=== PATIENT | female | born 1970 | race Caucasian/White ===

== ENCOUNTER → 2018-06-18 15:00 | Outpatient (CLI) | payer BC, SELFPAY ==
--- NOTE | 2018-06-18 15:05 | XR_ITS ---
XR foot wt bearing LT 3V HISTORY: ITS.REASON: pain ORDERING PHYSICIAN: Luisa Driscoll DPM PATIENT AGE: 48 years COMPARISON: None FINDINGS: No fracture or dislocation. No lytic or blastic change. There is normal mineralization.. The joint spaces are well-preserved. No significant degenerative/arthritic changes. No erosive changes evident. There are mild hypertrophic changes of the navicular with some mild sclerosis of the articular surface of the navicular proximally.. The talonavicular joint space is well-preserved. IMPRESSION: 1. No acute finding. 2. Minimal hypertrophic change of the navicular dorsally
--- NOTE | 2018-06-18 15:05 | XR_ITS ---
XR foot wt bearing RT 3V HISTORY: ITS.REASON: pain ORDERING PHYSICIAN: Luisa Driscoll DPM PATIENT AGE: 48 years COMPARISON: None FINDINGS: No fracture or dislocation. No lytic or blastic change. There is normal mineralization.. The joint spaces are well-preserved. No significant degenerative/arthritic changes. No erosive changes evident. There are mild nonspecific hypertrophic changes along the superior aspect of the navicular. The talonavicular joint spaces well-preserved. Small calcaneal spurs noted IMPRESSION: No acute finding. Minimal hypertrophic changes of the navicular
== END ==
PROVIDERS: PCP Family Medicine; Visit Provider Podiatrist
DX: M79.672 Pain in left foot (principal); M79.671 Pain in right foot
CPT/HCPCS: 73630

== ENCOUNTER → 2018-10-15 16:39 | Outpatient (CLI) | payer BC, SELFPAY ==
--- NOTE | 2018-10-15 16:44 | MM_ITS ---
MM Dig screening mamm BI w/CAD CAD Screening COMPARISON: Digital mammograms with CAD 12/12/2016 INDICATION: There is no personal or family history of breast cancer TECHNIQUE: Standard CC and MLO images were obtained. R2 CAD reviewed. FINDINGS: Scattered fibroglandular densities are seen throughout both breasts. There is a possible asymmetric density and/or architectural distortion in the retroareolar region left breast. This likely is a summation shadow but recommend patient return for spot compression views, ultrasound may be necessary as well. There are no suspicious microcalcifications. IMPRESSION: Fibrofatty parenchyma with possible developing asymmetric glandular density and/or architectural distortion BI-RADS Category: 0 Need Additional Imaging Evaluation RECOMMENDED FOLLOW-UP: IMM - IMMEDIATE FOLLOW-UP RECOMMENDED (A letter has been sent to the patient regarding results of the study.)
== END ==
PROVIDERS: PCP Family Medicine; Visit Provider Nurse Practitioner
DX: Z12.31 Encounter for screening mammogram for malignant neoplasm of breast (principal)
CPT/HCPCS: 77067

== ENCOUNTER → 2018-11-02 13:18 | Outpatient (CLI) | payer BC, SELFPAY ==
--- NOTE | 2018-11-02 13:25 | US_ITS ---
US breast LT complete COMPARISON: Diagnostic left mammogram 11/02/2018 HISTORY: Evaluation of possible asymmetric density left breast TECHNIQUE: Targeted ultrasound FINDINGS: There are 2 tiny 2 to 3 mm hypoechoic lesions one o'clock position mid breast to small to characterize but likely representing microcysts. There is an additional hypoechoic lesion at the 3:00 position near the nipple measuring 0.4 x 0.3 x 0.4 cm showing a few internal echoes and this could be a tiny fibroadenoma or a complex cyst. There are 2 normal-appearing nodes imaged in the axilla. There is no suspicious lesion seen. IMPRESSION: Tiny hypoechoic lesions as described likely microcysts or possibly tiny complex cysts with no suspicious lesion seen in recommend the patient continue with yearly screening mammography
--- NOTE | 2018-11-02 13:25 | MM_ITS ---
MM Dig mamm DX unilat LT CAD COMPARISON: Digital mammograms with CAD 10/15/2018 INDICATION: Evaluation of possible developing asymmetric density and/or architectural distortion left breast TECHNIQUE: Spot compression MLO and CC views and 90 degrees lateral view FINDINGS: The additional views decreased concern for a true lesion at this location. There is a small area of likely asymmetric fibroglandular tissue with no suspicious characteristics noted. IMPRESSION: Negative problem-solving views, patient to continue with yearly screening mammography BI-RADS Category: 1 Negative RECOMMENDED FOLLOW-UP: 1YR - 1 YEAR FOLLOW-UP (A letter has been sent to the patient regarding results of the study.)
== END ==
PROVIDERS: PCP Family Medicine; Visit Provider Family Medicine
DX: R92.8 Other abnormal and inconclusive findings on diagnostic imaging of breast (principal)
CPT/HCPCS: 76641; 77065

== ENCOUNTER → 2020-09-14 10:03 | Outpatient (CLI) | payer BC, SELFPAY ==
--- NOTE | 2020-09-14 | CA_ITS ---
APPROVED REPORT Bilateral Lower Extremity Venous Study for DVT. Census Taker: ADITYA Indications s/p fall 10 days ago with a hematoma Vein Imaging CFV (L): compressive, spontaneous, phasic, augmentation SFJ (L): compressive, spontaneous, phasic, augmentation FEM (L): compressive, spontaneous, phasic, augmentation POP (L): compressive, spontaneous, phasic, augmentation DFV (L): compressive, spontaneous, phasic, augmentation PTV (L): compressive, spontaneous, phasic, augmentation GSV (L): compressive, spontaneous, phasic, augmentation SSV (L): compressive, spontaneous, phasic, augmentation Peroneals (L):compressive, spontaneous, phasic, augmentation GAS (L): compressive, spontaneous, phasic, augmentation Findings Color flow duplex demonstrates no evidence of DVT of the following left lower extremity Veins:Common Femoral Vein, Femoral Vein, Popliteal Vein, Posterior Tibial Veins, Peroneal Veins, Deep Femoral Vein. Negative for DVT. Conclusion Negative for DVT. Electronically signed by : Adrian Kern MD 09/14/2020 16:14:41
--- NOTE | 2020-09-14 10:29 | XR_ITS ---
PROCEDURE: XR ANKLE LT MIN 3V CLINICAL INDICATION: ACUTE LT ANKLE PAIN COMPARISON: No exams were available for comparison FINDINGS: No fracture or dislocation. No lytic or blastic change. There is normal mineralization. The joint spaces are well-preserved. No significant degenerative/arthritic changes. No erosive changes evident. Other findings:None. IMPRESSION: No acute findings. Dictated by: Adrian Kern MD 09/14/2020 12:41 Adrian Kern MD in [place] 09/14/2020 12:41
== END ==
PROVIDERS: PCP Nurse Practitioner; Visit Provider Nurse Practitioner
DX: M79.662 Pain in left lower leg (principal); M25.572 Pain in left ankle and joints of left foot
CPT/HCPCS: 73610; 93971

== ENCOUNTER → 2021-03-19 10:17 | Outpatient (CLI) | payer BC, SELFPAY ==
[2021-03-19 10:47] LABS: Coronavirus 19, PCR Not Detected (NotDetected); Influenza A, PCR Not Detected (NotDetected); Influenza B, PCR Not Detected (NotDetected)
[2021-03-19 11:04] LABS: Basophils % 0.3 % (0.1-2.0); Eosinophils % 0.1 % (0.1-12.0); Hematocrit 41.4 % (37.0-47.0); Hemoglobin 14.1 g/dL (12.2-16.2); Lymphocytes # 1.4 K/mm3 (0.7-4.5); Lymphocytes % 11.6 % (10-50); Mean Corpuscular HGB Conc 34.1 g/dL (31.8-35.4); Mean Corpuscular Hemoglobin 30.7 pg (27.0-31.2); Mean Corpuscular Volume 89.9 fl (81-99); Monocytes # 0.5 K/mm3 (0.1-1.0); Monocytes % 4.3 % (1.7-9.3); Neutrophils # 10.2 K/mm3 (1.8-7.8); Neutrophils % 83.7 % (37.0-80.0); Platelet Count 364 K/mm3 (142-424); Red Cell Distribution Width 13.1 % (11.5-17.5); White Blood Count 12.2 K/mm3 (4.8-10.8)
== END ==
PROVIDERS: PCP Nurse Practitioner; Visit Provider Nurse Practitioner
DX: Z20.822 Contact with and (suspected) exposure to COVID-19 (principal)
CPT/HCPCS: 36415; 85025; C9803; U0003; U0005

== ENCOUNTER → 2021-07-04 10:50 | Outpatient (CLI) | payer BC, SELFPAY ==
--- NOTE | 2021-07-04 10:52 | MM_ITS ---
PROCEDURE INFORMATION: Exam: MG Bilateral Screening 3D Mammography Exam date and time: 07/04/2021 10:52 AM Age: 51 years old Clinical indication: Encounter for screening mammogram for malignant neoplasm of breast; Additional info: Fibrocystic breast disease (fcbd) unspecified type TECHNIQUE: Imaging protocol: Bilateral Screening tomosynthesis and 2D mammography including computer-aided detection (CAD) when performed. COMPARISON: 1. MG DIG MAMM-DX UNI-LT 11/02/2018 2:25 PM 2. MG DIG MAMM-SCREEN ELIS 10/15/2018 4:47 PM 3. MG DMSB DIG MAMM-SCREEN ELIS W/CAD 12/12/2016 4:25 PM FINDINGS: MAMMOGRAPHY: Breast composition: There are scattered areas of fibroglandular density. Mass: Questionable oval 0.9 cm mass in the left upper inner quadrant, middle depth, best seen on CC projection. No suspicious mass in the right breast. Architectural distortion: No suspicious distortion. Calcifications: No suspicious calcifications. Asymmetric density: None. Skin thickening: None. Axillary adenopathy: None. IMPRESSION: 1. Recommend left breast spot compression CC/MLO views and ultrasound for further evaluation of a questionable mass in the left upper inner quadrant, best seen on CC projection. 2. No definite mammographic evidence of malignancy in the right breast. ASSESSMENT: BI-RADS Category 0: Incomplete- Need Additional Imaging Evaluation and/or Prior Mammograms for Comparison
== END ==
PROVIDERS: PCP Nurse Practitioner; Visit Provider Nurse Practitioner
DX: Z12.31 Encounter for screening mammogram for malignant neoplasm of breast (principal); G47.30 Sleep apnea, unspecified; I10 Essential (primary) hypertension
CPT/HCPCS: 77063; 77067; G0399

== ENCOUNTER → 2021-07-18 12:41 | Outpatient (CLI) | payer BC, SELFPAY ==
--- NOTE | 2021-07-18 12:46 | MM_ITS ---
PROCEDURE INFORMATION: Exam: US Left Breast, Complete MG Left Diagnostic Breast Tomosynthesis Exam date and time: 07/18/2021 1:39 PM Age: 51 years old Clinical indication: Patient recalled for further evaluation of a questionable left breast mass TECHNIQUE: Imaging protocol: Complete ultrasound of all four quadrants of the Left breast and the retroareolar regions, including ultrasound of the axilla when performed. Left Diagnostic tomosynthesis and 2D mammography including computer-aided detection (CAD) when performed. Unilateral or bilateral exam. COMPARISON: 1. MG MM DIG SCREENING MAMM BI W/CAD 07/04/2021 10:51 AM 2. MG DIG MAMM-DX UNI-LT 11/02/2018 2:25 PM 3. BREASTLT US breast LT complete 11/02/2018 1:56 PM 4. MG DIG MAMM-SCREEN ELIS 10/15/2018 4:47 PM FINDINGS: MAMMOGRAPHY: Digital diagnostic spot compression views of the left breast demonstrate normal overlapping fibroglandular structures without persistent mass or asymmetry identified. ULTRASOUND: Sonographic images of the left breast including the retroareolar region, all 4 quadrants and the axilla do not demonstrate any solid masses. Few scattered subcentimeter cysts are noted. No architectural distortion or acoustical shadowing. No skin thickening or axillary adenopathy. IMPRESSION: No mammographic or sonographic evidence of malignancy. Annual bilateral mammographic screening is recommended unless otherwise clinically indicated. ASSESSMENT: BI-RADS Category 2: Benign
== END ==
PROVIDERS: PCP Nurse Practitioner; Visit Provider Nurse Practitioner
DX: R92.8 Other abnormal and inconclusive findings on diagnostic imaging of breast (principal)
CPT/HCPCS: 76641; 77061; 77065; G0279

== ENCOUNTER 2022-01-05 13:44 | Emergency (ER) | payer BC, SELFPAY ==
--- NOTE | 2022-01-05 13:47 | XR_ITS ---
PROCEDURE INFORMATION: Exam: XR Right Hand Exam date and time: 01/05/2022 1:43 PM Age: 52 years old Clinical indication: Injury or trauma; Blunt trauma (contusions or hematomas); Injury details: Son ran into her right hand yesterday jamming her right hand. ; Additional info: Son ran into it TECHNIQUE: Imaging protocol: Radiologic exam of the Right hand. Views: 3 or more views. COMPARISON: No relevant prior studies available. FINDINGS: Bones/joints: Normal. Soft tissues: Normal. IMPRESSION: No acute findings.
[2022-01-05 13:50] VITALS: BP 153/89; PULSE 78; RESP 20; TEMP 36.7; O2SAT 97; BMI 36.8
--- NOTE | 2022-01-05 14:07 | EXP.UTC ---
Discharge Plan Disposition Patient Disposition: Home, Self-Care Condition: Good Prescriptions Prescriptions: New ibuprofen [ibuprofen] 600 mg tablet 600 mg PO Q6HP PRN (Reason: Mild Pain) Qty: 30 0RF No Action diclofenac sodium [Voltaren] 1 % gel 4 g topical QID Qty: 30 2RF Rx Instructions: apply to single knee, ankle, foot; gently massage into area; for foot includes sole/toes/top of foot cetirizine [Zyrtec] 10 mg tablet 10 mg PO DAILY duloxetine 20 mg capsule,delayed release(DR/EC) 20 mg PO BID Qty: 180 1RF estradiol 1 mg tablet 1 mg PO DAILY Qty: 90 1RF hydrochlorothiazide 25 mg tablet 25 mg PO DAILY Qty: 90 1RF metoprolol succinate 25 mg tablet extended release 24 hr 25 mg PO DAILY Qty: 90 1RF Referrals Follow up/Referrals: iGna Lopez APRN [Primary Care Provider] - See instructions Kayode Ring MD [Staff Physician] - See instructions Activity Restrictions/Add. Instructions Additional Instructions/Restrictions: Rest the extremity, apply ice for 15 minutes as tolerated three or four times per day, Wear the cierra wrap for compression, Elevate the extremity as tolerated while you are resting. Take ibuprofen for pain. I sent in a prescription to your pharmacy. Follow up with Dr. Ring (orthopedics). Sometimes there can be injuries that don't show up well on the first set of x-rays. So, you should follow up. I put in a referral but you need to call his office and schedule an appointment. Follow up with your regular doctor. GO TO THE ER FOR ANY WORSENING SYMPTOMS Clinical Impressions Clinical Impression: Other sprain of right middle finger, initial encounter Stand Alone Forms Stand Alone Forms: Work/School Release Discharge ED Provider: Nick Rodarte [facility] General Stated complaint: ao 01/04, right hand pain Mode of Arrival: Ambulatory Source of Information: Patient Limitations: No Limitations Time Seen by Provider: 01/05/22 14:05 Description of Symptoms (Recalled from Triage Doc. by RN): PATIENT C/O INJURY TO RIGHT HAND AFTER HER SON RAN INTO IT AT A BIRTHDAY [employer] LAST NIGHT HEENT Symptoms (Recalled from RN notes): No Resp Symptoms (Recalled from RN notes): No Skin Symptoms (Recalled from RN notes): No MS Symptoms (Recalled from RN notes): Yes Functional Status (Recalled from RN notes): WNL History of Present Illness Provider Complaint: She was at a birthday republican last night when her son ran into her outstretched right hand and bent her middle finger back on accident. Related Data Home Medications Medication Instructions Recorded Confirmed cetirizine 10 mg tablet (Zyrtec) 10 mg PO DAILY 08/23/18 07/24/21 Previous Rx's Medication Instructions Recorded diclofenac sodium 1 % topical gel 4 g topical QID pain #30 grams 06/28/18 (Voltaren) duloxetine 20 mg capsule,delayed 20 mg PO BID #180 caps 12/24/21 release estradiol 1 mg tablet 1 mg PO DAILY #90 tabs 12/24/21 hydrochlorothiazide 25 mg tablet 25 mg PO DAILY #90 tabs 12/24/21 metoprolol succinate 25 mg 25 mg PO DAILY #90 tabs 12/24/21 tablet,extended release 24 hr ibuprofen 600 mg tablet 600 mg PO Q6HP PRN Mild Pain #30 01/05/22 tabs Allergies Allergy/AdvReac Type Severity Reaction Status Date / Time No Known Allergies Allergy Verified 07/24/21 14:17 Worker's Comp Is this a Worker's Comp case?: No PFSH PFSH Medical History Hypertension Surgical History History of hysterectomy Social History Smoking Status: Former smoker alcohol intake: current substance use type: denies use current occupational status: employed Travel in the last 8 weeks: None household members: family housing: house ROS Obtained: Yes All systems reviewed & no additional complaints except as documented Constitutional Co
[2022-01-05 14:39] VITALS: BP 153/89; PULSE 78; RESP 20; TEMP 36.7; O2SAT 97
== END 2022-01-05 15:17 | disposition home or self-care (01) ==
PROVIDERS: Emergency Provider Nurse Practitioner Family; PCP Nurse Practitioner
DX: S63.612A Unspecified sprain of right middle finger, initial encounter (principal); W50.0XXA Accidental hit or strike by another person, initial encounter
CPT/HCPCS: 73130; 99212; G0463

== ENCOUNTER → 2022-03-12 10:30 | Outpatient (CLI) | payer BC, SELFPAY ==
[2022-03-12 18:44] LABS: Adenovirus,PCR Not Detected (NotDetected); Bordetella Pertussis Not Detected (NotDetected); Chlamydophila Pneumoniae, PCR Not Detected (NotDetected); Coronavirus 19, PCR Not Detected (NotDetected); Coronavirus 229E Not Detected (NotDetected); Coronavirus NL63 Not Detected (NotDetected); Coronavirus OC43 Not Detected (NotDetected); Coronovirus HKU1,PCR Not Detected (NotDetected); Human Metapneumovirus Not Detected (NotDetected); Influenza A, PCR Not Detected (NotDetected); Influenza AH1, 2009 Not Detected (NotDetected); Influenza AH1, PCR Not Detected (NotDetected); Influenza AH3,PCR Not Detected (NotDetected); Influenza B, PCR Not Detected (NotDetected); Mycoplasma Pneumoniae, PCR Not Detected (NotDetected); Parainfluenza 1, PCR Not Detected (NotDetected); Parainfluenza 2, PCR Not Detected (NotDetected); Parainfluenza 3, PCR Not Detected (NotDetected); Parainfluenza 4, PCR Not Detected (NotDetected); Respiratory Syncytial Virus Not Detected (NotDetected); Rhinovirus/Enterovirus Not Detected (NotDetected)
[2022-03-12 19:25] LABS: Basophils # 0.1 K/mm3 (0-0.2); Basophils % 1.5 % (0.1-2.0); Eosinophils # 0.1 K/mm3 (0.0-0.4); Eosinophils % 2.1 % (0.1-12.0); Hemoglobin 11.9 g/dL (12.2-16.2); Lymphocytes # 2.5 K/mm3 (0.7-4.5); Lymphocytes % 39.5 % (10-50); Mean Corpuscular HGB Conc 31.4 g/dL (31.8-35.4); Mean Corpuscular Hemoglobin 29.9 pg (27.0-31.2); Mean Corpuscular Volume 95.3 fl (81-99); Mean Platelet Volume 9.8 fl (7.4-10.4); Monocytes # 0.4 K/mm3 (0.1-1.0); Monocytes % 5.8 % (1.7-9.3); Neutrophils # 3.2 K/mm3 (1.8-7.8); Neutrophils % 51.2 % (37.0-80.0); Platelet Count 395 K/mm3 (142-424); Red Blood Count 3.99 M/mm3 (4.20-5.40); Red Cell Distribution Width 13.2 % (11.5-17.5); White Blood Count 6.3 K/mm3 (4.8-10.8)
[2022-03-12 19:31] LABS: Alanine Aminotransferase 23 U/L (12-78); Albumin Level 4.5 g/dl (3.5-5.0); Albumin/Globulin Ratio 1.7 (1.1-1.8); Alkaline Phosphatase 90 U/L (38-126); Aspartate Amino Transferase 30 U/L (14-36); Bilirubin,Total 0.4 mg/dl (0.2-1.3); Blood Urea Nitrogen 20 mg/dl (7-17); Calcium 9.6 mg/dl (8.4-10.2); Carbon Dioxide 31 mmol/L (22.0-30.0); Chloride 101 mmol/L (98-107); Chol/HDL Ratio 4.6 (1-3.5); Cholesterol 242 mg/dl (140-200); Estimated Glomerular Filt Rate 66 ml/min (>60); GFR (African American) 80 ML/MIN (>60); Globulin 2.7 g/dL (1.3-3.2); Glucose 94 mg/dl (74-100); HDL Cholesterol 53 mg/dl (40-60); Sodium 141 mmol/L (136-145); Total Protein,Serum 7.2 g/dl (6.3-8.2); Triglycerides 116 mg/dl (30-150); VLDL Cholesterol 23 mg/dL (0-40)
[2022-03-12 19:42] LABS: Direct LDL Cholesterol 155.27 mg/dL (100-129)
[2022-03-12 20:57] LABS: Anion Gap 13.1 mEq/L (5-15); Potassium 4.1 mmoL/L (3.5-5.1)
[2022-03-22 19:09] LABS: 1,25 Dihydroxy Vitamin D 114 pg/mL (.); 1,25-Dihydroxy, Vitamin D-2 <10 pg/mL (.); 1,25-Dihydroxy, Vitamin D-3 114 pg/mL (.)
== END ==
PROVIDERS: PCP Nurse Practitioner; Visit Provider Nurse Practitioner
DX: I10 Essential (primary) hypertension (principal); E78.5 Hyperlipidemia, unspecified; E55.9 Vitamin D deficiency, unspecified; J06.9 Acute upper respiratory infection, unspecified; J30.9 Allergic rhinitis, unspecified
CPT/HCPCS: 80053; 80061; 82652; 85025; 87581; 87632; 87798; C9803; U0003; U0005

== ENCOUNTER → 2022-04-04 18:31 | Outpatient (CLI) | payer BC, SELFPAY ==
--- NOTE | 2022-04-04 18:35 | XR_ITS ---
PROCEDURE INFORMATION: Exam: XR Lumbosacral Spine Exam date and time: 04/04/2022 6:37 PM Age: 52 years old Clinical indication: Pain; Sciatica; Patient HX: Numbness tingling down right leg; Additional info: Acute low back pain with right-sided sciatica TECHNIQUE: Imaging protocol: Radiologic exam of the lumbosacral spine. Views: 2 or 3 views. COMPARISON: [facility]SWO CT LUMBAR SPINE W/O CONTRAST 09/23/2016 1:17 AM FINDINGS: Bones/joints: Normal. No acute fracture. Normal alignment. Soft tissues: Unremarkable. IMPRESSION: No acute findings.
== END ==
PROVIDERS: PCP Nurse Practitioner; Visit Provider Nurse Practitioner
DX: M54.41 Lumbago with sciatica, right side (principal)
CPT/HCPCS: 72100

== ENCOUNTER → 2022-10-15 11:42 | Outpatient (CLI) | payer BC, SELFPAY ==
[2022-10-15 19:31] LABS: Coronavirus 19, PCR Not Detected (NotDetected); Influenza A, PCR Not Detected (NotDetected); Influenza B, PCR Not Detected (NotDetected)
[2022-10-15 19:46] LABS: Basophils # 0.1 K/mm3 (0-0.2); Basophils % 0.6 % (0.1-2.0); Eosinophils # 0.2 K/mm3 (0.0-0.4); Eosinophils % 1.6 % (0.1-12.0); Hematocrit 37.6 % (37.0-47.0); Hemoglobin 12.2 g/dL (12.2-16.2); Lymphocytes # 2.7 K/mm3 (0.7-4.5); Lymphocytes % 21.3 % (10-50); Mean Corpuscular HGB Conc 32.4 g/dL (31.8-35.4); Mean Corpuscular Hemoglobin 28.2 pg (27.0-31.2); Mean Corpuscular Volume 87.2 fl (81-99); Mean Platelet Volume 10.4 fl (7.4-10.4); Monocytes # 0.8 K/mm3 (0.1-1.0); Monocytes % 6.3 % (1.7-9.3); Neutrophils # 8.7 K/mm3 (1.8-7.8); Neutrophils % 70.2 % (37.0-80.0); Platelet Count 341 K/mm3 (142-424); Red Blood Count 4.31 M/mm3 (4.20-5.40); Red Cell Distribution Width 15.4 % (11.5-17.5); White Blood Count 12.4 K/mm3 (4.8-10.8)
== END ==
PROVIDERS: PCP Nurse Practitioner; Visit Provider Nurse Practitioner
DX: J06.9 Acute upper respiratory infection, unspecified (principal); J02.9 Acute pharyngitis, unspecified
CPT/HCPCS: 85025; 87635; 87636; C9803; U0003; U0005

== ENCOUNTER → 2022-11-13 14:56 | Outpatient (POV) | payer BC, SELFPAY | PROVIDERS: Visit Provider Specialist/Technologist | DX: Z00.00 Encounter for general adult medical examination without abnormal findings (principal) ==

== ENCOUNTER → 2023-04-06 23:59 | Outpatient (CLI) | payer BC, SELFPAY ==
[2023-04-06 18:50] LABS: Influenza A, PCR Not Detected (NotDetected); Influenza B, PCR Not Detected (NotDetected)
[2023-04-06 19:33] LABS: Basophils # 0.1 K/mm3 (0-0.2); Basophils % 0.8 % (0.1-2.0); Eosinophils % 0.2 % (0.1-12.0); Hematocrit 35.4 % (37.0-47.0); Hemoglobin 12.2 g/dL (12.2-16.2); Lymphocytes # 1.2 K/mm3 (0.7-4.5); Lymphocytes % 17.1 % (10-50); Mean Corpuscular HGB Conc 34.6 g/dL (31.8-35.4); Mean Corpuscular Hemoglobin 29.9 pg (27.0-31.2); Mean Corpuscular Volume 86.5 fl (81-99); Mean Platelet Volume 9.5 fl (7.4-10.4); Monocytes # 0.7 K/mm3 (0.1-1.0); Monocytes % 9.6 % (1.7-9.3); Neutrophils # 5.1 K/mm3 (1.8-7.8); Neutrophils % 72.4 % (37.0-80.0); Platelet Count 279 K/mm3 (142-424); Red Blood Count 4.09 M/mm3 (4.20-5.40); Red Cell Distribution Width 14.7 % (11.5-17.5); White Blood Count 7.1 K/mm3 (4.8-10.8)
[2023-04-06 20:02] LABS: Coronavirus 19, PCR Detected (NotDetected)
== END ==
PROVIDERS: PCP Family Medicine; Visit Provider Nurse Practitioner
DX: J06.9 Acute upper respiratory infection, unspecified (principal); U07.1 COVID-19
CPT/HCPCS: 85025; 87636

== ENCOUNTER → 2023-04-21 08:31 | Outpatient (CLI) | payer BC, SELFPAY ==
--- NOTE | 2023-04-21 08:52 | MR_ITS ---
FINAL REPORT CLINICAL HISTORY: right ear dysfunction COMPARISON: None FINDINGS: Multiplanar MR imaging of the brain was performed without and with contrast. The internal auditory canals are unremarkable in appearance without evidence of focal mass or enhancement. There is no evidence of intracranial hemorrhage or mass. No abnormal extra-axial fluid collection is seen. The ventricular size is within normal limits. There is no evidence of shift of the midline structures. The posterior fossa and brainstem have an unremarkable appearance. No area of abnormal restricted diffusion is identified. No abnormal contrast enhancement is seen. Normal major vessel vascular flow voids are noted. IMPRESSION: No acute intracranial abnormality identified. Reviewed, Interpreted and Dictated by Francisco Uribe MD Transcribed by Dianelys Coburn Authenticated and [facility]
[2023-04-21 09:08] LABS: Blood Urea Nitrogen 21 mg/dl (7-17); Estimated Glomerular Filt Rate 52 ml/min (>60); GFR (African American) 63 ML/MIN (>60)
== END ==
PROVIDERS: PCP Family Medicine; Visit Provider Family Medicine
DX: H69.91 Unspecified Eustachian tube disorder, right ear (principal)
CPT/HCPCS: 36415; 70553; 82565; 84520; A9576

== ENCOUNTER 2024-03-14 10:20 | Outpatient (CLI) | payer BC, SELFPAY ==
[2024-03-14 18:51] LABS: Basophils # 0.1 K/mm3 (0-0.2); Basophils % 0.8 % (0.1-2.0); Eosinophils # 0.1 K/mm3 (0.0-0.4); Eosinophils % 1.9 % (0.1-12.0); Hematocrit 39.4 % (37.0-47.0); Hemoglobin 12.8 g/dL (12.2-16.2); Lymphocytes # 2.1 K/mm3 (0.7-4.5); Lymphocytes % 34.8 % (10-50); Mean Corpuscular HGB Conc 32.4 g/dL (31.8-35.4); Mean Corpuscular Hemoglobin 29.9 pg (27.0-31.2); Mean Corpuscular Volume 92.2 fl (81-99); Mean Platelet Volume 8.7 fl (7.4-10.4); Monocytes # 0.4 K/mm3 (0.1-1.0); Monocytes % 6.5 % (1.7-9.3); Neutrophils # 3.4 K/mm3 (1.8-7.8); Neutrophils % 56.1 % (37.0-80.0); Platelet Count 319 K/mm3 (142-424); Red Blood Count 4.27 M/mm3 (4.20-5.40); Red Cell Distribution Width 13.9 % (11.5-17.5)
[2024-03-14 18:55] LABS: Albumin Level 4.1 g/dl (3.5-5.0); Chloride 105 mmol/L (98-107)
[2024-03-14 18:56] LABS: Potassium 3.7 mmoL/L (3.5-5.1); Sodium 140 mmol/L (136-145)
[2024-03-14 18:58] LABS: Alanine Aminotransferase 20 U/L (12-78); Albumin/Globulin Ratio 1.7 (1.1-1.8); Alkaline Phosphatase 54 U/L (38-126); Anion Gap 10.7 mEq/L (5-15); Aspartate Amino Transferase 28 U/L (14-36); Bilirubin,Total 0.4 mg/dl (0.2-1.3); Blood Urea Nitrogen 19 mg/dl (7-17); Carbon Dioxide 28 mmol/L (22.0-30.0); Estimated Glomerular Filt Rate 75 ml/min (>60); GFR (African American) 91 ML/MIN (>60); Globulin 2.4 g/dL (1.3-3.2); Total Protein,Serum 6.5 g/dl (6.3-8.2)
[2024-03-14 18:59] LABS: Calcium 9.2 mg/dl (8.4-10.2); Chol/HDL Ratio 4.1 (1-3.5); Cholesterol 215 mg/dl (140-200); Glucose 101 mg/dl (74-100); HDL Cholesterol 53 mg/dl (40-60); Triglycerides 111 mg/dl (30-150); VLDL Cholesterol 22 mg/dL (0-40)
[2024-03-14 19:30] LABS: Thyroid Stimulating Hormone 1.48 uIU/mL (0.465-4.68)
[2024-03-14 20:10] LABS: 25-OH Vitamin D, Total 30.7 ng/mL (30-100)
[2024-03-14 20:14] LABS: Microalbumin/Creatinine Ratio 4.1
[2024-03-14 20:42] LABS: Vitamin B12 532 pg/mL (239-931)
[2024-03-14 20:55] LABS: Creatinine,Urine Random 191 mg/dL (Not Estab.)
[2024-03-14 21:23] LABS: Hemoglobin A1C 5.3 % (4.0-6.0)
[2024-03-16 06:16] LABS: HCV Ab Non Reactive (Non Reactive)
== END 2024-03-14 23:59 | disposition home or self-care (01) ==
LOC: LAB.DROPOF 03-15 09:18
PROVIDERS: PCP Nurse Practitioner; Visit Provider Nurse Practitioner
DX: E78.5 Hyperlipidemia, unspecified (principal); I10 Essential (primary) hypertension; E53.8 Deficiency of other specified B group vitamins; E55.9 Vitamin D deficiency, unspecified; J30.9 Allergic rhinitis, unspecified; Z13.0 Encounter for screening for diseases of the blood and blood-forming organs and certain disorders involving the immune mechanism
CPT/HCPCS: 80050; 80053; 80061; 82043; 82306; 82570; 82607; 83036; 84443; 85025; 86803

== ENCOUNTER 2024-04-05 13:07 | Outpatient (CLI) | payer BC, SELFPAY ==
--- NOTE | 2024-04-05 13:11 | MM_ITS ---
PROCEDURE INFORMATION: Exam: MG Bilateral Screening 3D Mammography Exam date and time: 04/05/2024 1:29 PM Age: 54 years old Clinical indication: Screening examination TECHNIQUE: Imaging protocol: Bilateral Screening tomosynthesis and 2D mammography including computer-aided detection (CAD) when performed. COMPARISON: 1. MG MM DIG MAMM DX UNILAT LT CAD 07/18/2021 12:57 PM 2. MG MM DIG SCREENING MAMM BI W/CAD 07/04/2021 10:51 AM FINDINGS: MAMMOGRAPHY: Breast composition: There are scattered areas of fibroglandular density. Mass: None. Architectural distortion: None. Calcifications: No suspicious calcifications. Asymmetric density: None. Skin thickening: None. Axillary adenopathy: None. IMPRESSION: No mammographic evidence of malignancy. Annual screening is recommended unless otherwise clinically indicated. ASSESSMENT: BI-RADS Category 1: Negative.
== END 2024-04-05 23:59 | disposition home or self-care (01) ==
LOC: RAD 13:07
PROVIDERS: PCP Family Medicine; Visit Provider Nurse Practitioner
DX: Z12.31 Encounter for screening mammogram for malignant neoplasm of breast (principal)
CPT/HCPCS: 77063; 77067

== ENCOUNTER 2024-05-09 16:00 | Outpatient (CLI) | payer BC, SELFPAY ==
[2024-05-09 18:24] LABS: Coronavirus 19, PCR Not Detected (NotDetected); Human Rhinovirus Not Detected (NotDetected); Influenza A, PCR Not Detected (NotDetected); Influenza B, PCR Not Detected (NotDetected); Respiratory Syncytial Virus Not Detected (NotDetected)
[2024-05-09 18:57] LABS: Basophils # 0.1 K/mm3 (0-0.2); Basophils % 0.7 % (0.1-2.0); Eosinophils # 0.1 K/mm3 (0.0-0.4); Eosinophils % 0.8 % (0.1-12.0); Hematocrit 40.8 % (37.0-47.0); Hemoglobin 13.1 g/dL (12.2-16.2); Lymphocytes # 2.3 K/mm3 (0.7-4.5); Lymphocytes % 31.5 % (10-50); Mean Corpuscular HGB Conc 32.1 g/dL (31.8-35.4); Mean Corpuscular Hemoglobin 28.9 pg (27.0-31.2); Mean Corpuscular Volume 90.1 fl (81-99); Mean Platelet Volume 10.2 fl (7.4-10.4); Monocytes # 0.7 K/mm3 (0.1-1.0); Monocytes % 10.2 % (1.7-9.3); Neutrophils % 56.2 % (37.0-80.0); Platelet Count 360 K/mm3 (142-424); Red Blood Count 4.53 M/mm3 (4.20-5.40); Red Cell Distribution Width 13.7 % (11.5-17.5); White Blood Count 7.1 K/mm3 (4.8-10.8)
== END 2024-05-09 23:59 | disposition home or self-care (01) ==
LOC: LAB.DROPOF 05-11 08:44
PROVIDERS: PCP Nurse Practitioner; Visit Provider Nurse Practitioner
DX: J06.9 Acute upper respiratory infection, unspecified (principal)
CPT/HCPCS: 85025; 87631

== ENCOUNTER 2024-05-25 08:04 | Day surgery (SDC) | payer BC, SELFPAY ==
[2024-05-20 13:23] VITALS: BMI 35.9
[2024-05-25 08:36] VITALS: BP 128/79; PULSE 68; RESP 18; TEMP 36.5; O2SAT 96
[2024-05-25] MEDS: LACTATED RINGERS 1000ML 1,000 ML 50 ML IV (09:30)
--- NOTE | 2024-05-25 09:33 | P.PNANES_ITS ---
[facility] Disclaimer: The information contained in this section may have been updated after the patient was seen, as this information can be updated by other users. Medical History Family history of colon cancer in mother Right shoulder pain Anxiety with depression Eustachian tube dysfunction TMJ (dislocation of temporomandibular joint) Retracted ear drum Acute middle ear effusion Acute low back pain with right-sided sciatica Allergic rhinitis Vitamin D deficiency Vitamin B12 deficiency Hyperlipidemia Essential hypertension Hypertension Surgical History History of hysterectomy Family History (Updated 05/25/24 @ 08:28 by Luz Zamora RN) Other No significant family history Social History (Updated 05/25/24 @ 08:28 by Luz Zamora RN) Smoking Status: Former smoker alcohol intake: current alcohol intake frequency: holidays/special occasions only substance use type: denies use current occupational status: employed Travel in the last 8 weeks: None household members: family housing: house caffeine: Yes Have you lived/traveled outside US in past 30 days?: No Contact w/someone who lives/traveled outside US past 30 days?: No Exposure to someone with infectious disease in past 14 days?: No Do you have a fever (greater than 100.4 F or 38 C)?: No Have you tested positive for COVID-19: No Exposed to someone with COVID-19 in past 14 days?: No Do you have a sore throat?: No Do you have a cough?: No Do you have any weakness?: No Are you experiencing any nausea/vomitting?: No Do you have any diarrhea?: No Are you experiencing any unusual bleeding?: No Do you have any muscle aches/pain?: No Do you have any abdominal pain?: No Are you experiencing loss of taste or smell?: No [facility] Anesthesia Checklist Patient Identification Patient Identification: Arm Band Structural Data Admitted From: Home Planned Operative Procedure/s: Colonoscopy Consent for Planned Operative Procedure(s) Verified: Yes Verified Documents: Surgical Consent and History and Physical NPO Status Verified Time NPO: 00:00 Additional verifications Anesthesia Reactions: No Airway Assessment Mallampati Score:: Class II C-Spine Mobility Assessed: Yes TMJ Mobility Assessed: Yes Dentition: Good Dentition Neurological Assessment Level of Consciousness: Awake, Alert and Appropriate Anesthesia Plan Anesthesia Risk discussed: Yes Anesthesia Plan: Verified ASA Class: II Anesthesia Type: MAC
[2024-05-25 10:04] VITALS: O2SAT 100
--- NOTE | 2024-05-25 10:14 | EXP.HP ---
History of Present Illness *Admission Date: 05/25/24 *Reason for visit:: High risk screening/family history *History of present illness: Mrs. Sanchez is a 54-year-old female who is here for high risk screening colonoscopy secondary to family history. Her sister had strongly suspected colon cancer at the age of 48 (colon mass with metastasis) and her mother had colon cancer at the age of 64. The examination is deemed medically necessary for high risk screening colonoscopy. The patient has been seen, interviewed and examined prior to the procedure by both myself and the anesthesia provider. [facility] Disclaimer: The information contained in this section may have been updated after the patient was seen, as this information can be updated by other users. Medical History Family history of colon cancer in mother Right shoulder pain Anxiety with depression Eustachian tube dysfunction TMJ (dislocation of temporomandibular joint) Retracted ear drum Acute middle ear effusion Acute low back pain with right-sided sciatica Allergic rhinitis Vitamin D deficiency Vitamin B12 deficiency Hyperlipidemia Essential hypertension Hypertension Surgical History History of hysterectomy Family History (Updated 05/25/24 @ 08:28 by Luz Zamora RN) Other No significant family history Social History (Updated 05/25/24 @ 08:28 by Luz Zamora RN) Smoking Status: Former smoker alcohol intake: current alcohol intake frequency: holidays/special occasions only substance use type: denies use current occupational status: employed Travel in the last 8 weeks: None household members: family housing: house caffeine: Yes Have you lived/traveled outside US in past 30 days?: No Contact w/someone who lives/traveled outside US past 30 days?: No Exposure to someone with infectious disease in past 14 days?: No Do you have a fever (greater than 100.4 F or 38 C)?: No Have you tested positive for COVID-19: No Exposed to someone with COVID-19 in past 14 days?: No Do you have a sore throat?: No Do you have a cough?: No Do you have any weakness?: No Are you experiencing any nausea/vomitting?: No Do you have any diarrhea?: No Are you experiencing any unusual bleeding?: No Do you have any muscle aches/pain?: No Do you have any abdominal pain?: No Are you experiencing loss of taste or smell?: No Other Medical History Have you received the Pneumonia Vaccine: No Review of Systems Review of Systems Review of systems (narrative): Negative *Cardiovascular Comments: Negative *Gastrointestinal Comments: Negative *Genitourinary Comments: Negative *Musculoskeletal Comments: Negative *Neurologic Comments: Negative Meds Home Medications and Allergies Home Medications ?Medication ?Instructions ?Recorded ?Confirmed ?Type cetirizine 10 mg tablet (Zyrtec) 10 mg PO DAILY 08/23/18 05/25/24 History phentermine 37.5 mg capsule 37.5 mg PO DAILY 09/02/23 05/25/24 History duloxetine 20 mg capsule,delayed See Rx Instructions .Route 03/14/24 05/25/24 Rx release .COMPLEX #180 caps estradiol 1 mg tablet 1 mg PO DAILY #90 tabs 03/14/24 05/25/24 Rx fluticasone propionate 50 See Rx Instructions .Route 03/14/24 05/25/24 Rx mcg/actuation nasal .COMPLEX #48 grams spray,suspension hydrochlorothiazide 25 mg tablet See Rx Instructions .Route 03/14/24 05/25/24 Rx .COMPLEX #90 tabs lisinopril 5 mg tablet 5 mg PO DAILY #90 tabs 03/14/24 05/25/24 Rx metoprolol succinate 50 mg 50 mg PO DAILY #90 tabs 03/14/24 05/25/24 Rx tablet,extended release 24 hr albuterol sulfate 90 mcg/actuation 2 puff inhalation Q4-6H PRN 05/09/24 05/25/24 Rx aerosol inhaler shortness of breath or wheezing #8.5 grams dextromethorphan-guaifenesin ER 60 1 tab PO Q12H #60 tabs 05/09/24 05/25/24 Rx mg-1,200 mg tab,extend release,12hr New Prescriptions to Start Prescriptions: Allergies Allergy/AdvReac Type Severity Reaction Status Date / Time No Known Allergies Allergy Verified 05/25/24 08:29 Exam Data for Last 24 hours Vital signs and Labs for Last 24 Hours: Temp Pulse Resp BP Pulse Ox O2 Del Method O2 Flow Rate 97.7 F 68 18 128/79 96 Nasal Cannula 5 05/25/24 08:36 05/25/24 08:36 05/25/24 08:36 05/25/24 08:36 05/25/24 08:36 05/25/24 10:04 05/25/24 10:04 *Routine HEENT Exam Head: Present normocephalic Eye: Present EOMI and PERRL ENT: Present mucous membranes moist *Routine Neck Exam Neck: Present supple *Routine Respiratory Exam Respiratory: Present CTA bilaterally *Routine Cardiovascular Exam Cardiovascular: Present RRR *Routine Abdominal Exam Abdominal: Present soft and normoactive bowel sounds; Absent tenderness *Routine Rectal Exam Rectal:: deferred *Routine Genitalia Exam Genitalia:: deferred *Routine Extremities Exam Extremities: Absent cyanosis, clubbing or edema *Routine Skin Exam Skin: Present warm; Absent rash *Routine Neurological Exam Neurological: Present alert and oriented X3 Assessment and Plan *Assessment and plan (1) Family history of colon cancer: Status: Acute Category: Medical Code(s): Z80.0 - Family history of malignant neoplasm of digestive organs (2) Personal history of colon polyps, unspecified: Status: Acute Category: Medical Code(s): Z86.0100 - Personal history of colon polyps, unspecified Plan A/P: 1. High risk screening colonoscopy secondary to family history is the preprocedural diagnosis. The patient did have a colonoscopy 7 years ago and had 3 polyps removed (unspecified) the patient will be anesthetized/sedated using MAC sedation. The patient has been seen and examined. Cardiac and lung assessment prior to the examination is stable. Proceed with planned screening colonoscopy
--- NOTE | 2024-05-25 10:16 | P.PCN_ITS ---
[facility] Procedure Note Date: 05/25/24 Time: 10:35 Procedure Note:: Colonoscopy Procedure Report: Colonoscopy with cold snare polypectomy Endoscopist: Alexy Mota II, MD Referring physician: Micky Ortiz MD Date of Procedure: May 25, 2024 Equipment: Olympus 190 variable stiffness pediatric colonoscope Sedation: MAC sedation Indication: Mrs. Park is a 54-year-old female who is here for high risk screening colonoscopy secondary to family history. Her mother had colon cancer at the age of 64. Her sister had presumed colon cancer at 48 and presented with large colon mass and advanced disease (suspected colon cancer). The patient's last colonoscopy was 7 years ago (Alhaji Vieira MD) and she states that 3 polyps were removed at that time. She reports no abdominal pain, weight loss, change in her bowel habits or rectal bleeding. Procedure: Prior to the procedure, a history and physical exam was performed, and patient's medications and allergies were reviewed. The risks, benefits and alternatives of the sedation and procedure were discussed with the patient. All questions were answered and informed consent was obtained. The patient was brought to the procedure room. Patient identification and proposed procedure were verified by the physician and the nurse. The patient was placed in a left lateral decubitus position and the scope was passed under direct vision. Throughout the procedure, the patient's blood pressure, pulse, and oxygen saturations were monitored continuously. The colonoscopy was accomplished without difficulty. The patient tolerated the procedure well. Findings: On digital rectal examination there was normal rectal tone. There were no external hemorrhoids. The colonoscope was introduced through the anal canal to the rectum and advanced to the cecum. The ileocecal valve and appendiceal orifice were identified. The scope was advanced a short distance into the ileum which appeared grossly normal. The scope was then withdrawn into the colon. The cecum, ascending, transverse and descending colon were normal. There was a dimi nutive 3 to 4 mm hyperplastic appearing polyp in the distal sigmoid colon removed via cold snare polypectomy. The remaining sigmoid and rectum were grossly normal. There were no other mucosal abnormalities identified. Upon retroflexion within the rectum there were small grade 1 internal hemorrhoids.The preparation was excellent throughout with Morehouse Preparation Score of 9. The cecal time was 12 minutes. Impression: 1. Diminutive hyperplastic appearing 3 to 4 mm distal sigmoid polyp Plan: I will follow-up the polyp histology. Based upon her family history, I would recommend repeat surveillance colonoscopy again in 5 years.
[2024-05-25 10:39] VITALS: BP 118/64; PULSE 64; RESP 16; TEMP 36.3; O2SAT 100
[2024-05-25 10:49] VITALS: BP 115/64; PULSE 64; RESP 16; O2SAT 100
[2024-05-25 10:59] VITALS: BP 107/70; PULSE 63; RESP 16; O2SAT 99
[2024-05-25 11:09] VITALS: BP 130/77; PULSE 57; RESP 16; O2SAT 98
== END 2024-05-25 11:10 | disposition home or self-care (01) ==
PROVIDERS: PCP Family Medicine; Visit Provider Internal Medicine Gastroenterology
PROC: (CPT 45385; principal; 2024-05-25 09:30)
DX: K63.5 Polyp of colon (principal); K64.0 First degree hemorrhoids; Z80.0 Family history of malignant neoplasm of digestive organs; Z86.0100 Personal history of colon polyps, unspecified
CPT/HCPCS: 45385; J7120

== ENCOUNTER 2025-04-10 08:07 | Outpatient (CLI) | payer BC, SELFPAY ==
[2025-04-10 14:55] LABS: Hematocrit 38.8 % (37.0-47.0); Hemoglobin 12.7 g/dL (12.2-16.2); Immature Granulocytes % 0.3 %; Mean Corpuscular HGB Conc 32.7 g/dL (31.8-35.4); Mean Corpuscular Hemoglobin 30.0 pg (27.0-31.2); Mean Corpuscular Volume 91.5 fl (81-99); Nucleated Red Blood Cells % 0 %; Platelet Count 354 K/mm3 (142-424); Red Blood Count 4.24 M/mm3 (4.20-5.40); Red Cell Distribution Width-SD 44.4 fL; White Blood Count 6.6 K/mm3 (4.8-10.8)
[2025-04-10 15:30] LABS: Hemoglobin A1C 5.3 % (4.0-6.0)
[2025-04-10 15:38] LABS: Alanine Aminotransferase 20 U/L (12-78); Albumin Level 4.3 g/dl (3.5-5.0); Albumin/Globulin Ratio 1.5 (1.1-1.8); Alkaline Phosphatase 102 U/L (38-126); Anion Gap 9.9 mEq/L (5-15); Aspartate Amino Transferase 28 U/L (14-36); Bilirubin,Total 0.5 mg/dl (0.2-1.3); Blood Urea Nitrogen 21 mg/dl (7-17); Calcium 9.3 mg/dl (8.4-10.2); Carbon Dioxide 28 mmol/L (22.0-30.0); Chloride 107 mmol/L (98-107); Cholesterol 225 mg/dl (140-200); Creatinine,Serum 0.90 mg/dl (0.52-1.04); Estimated Glomerular Filt Rate 65 ml/min (>60); GFR (African American) 79 ML/MIN (>60); Globulin 2.9 g/dL (1.3-3.2); Glucose 95 mg/dl (74-100); HDL Cholesterol 52 mg/dl (40-60); Potassium 4.9 mmoL/L (3.5-5.1); Sodium 140 mmol/L (136-145); Total Protein,Serum 7.2 g/dl (6.3-8.2); Triglycerides 137 mg/dl (30-150)
[2025-04-10 15:59] LABS: 25-OH Vitamin D, Total 25.4 ng/mL (30-100)
[2025-04-10 16:09] LABS: Thyroid Stimulating Hormone 1.74 uIU/mL (0.465-4.68)
[2025-04-10 16:28] LABS: Vitamin B12 770 pg/mL (239-931)
[2025-04-10 21:47] LABS: Hepatitis C Ab Qual. W/ RFX NEGATIVE (Negative)
[2025-04-11 08:24] LABS: Hepatitis B Surface Antigen Negative (Negative)
--- OUTSIDE RECORDS SUMMARY | 2025-04-12 08:09 | XMS_ITS | Clinical Summary ---
Author Organization [facility] Address [address] [place] [id number] Phone Care Team Providers Care Communications Operator Name Role Phone Unavailable Primary Care Provider Unavailabl e Allergies No known active allergies Medications estradiol (ESTRACE) 2 mg tablet Take 1 Tab by mouth daily. 30 Tab 0 07/13/2009 Active DULoxetine (CYMBALTA) 20 mg Oral Capsule, Delayed Release(E.C.) Take 20 mg by mouth 2 times daily. 06/26/2021 Active hydroCHLOROthiaz christiano (HYDRODIURIL) 25 mg Oral Tablet Take 25 mg by mouth daily. 05/24/2021 Active metoprolol succinate (TOPROL-XL) 25 mg Oral Tablet Sustained Release 24 hr Take 25 mg by mouth daily. 06/26/2021 Active ergocalciferol (DRISDOL) 1,250 mcg (50,000 unit) Oral Capsule Take 50,000 Units by mouth once a week. Active vitamin B complex (B COMPLEX 1 ORAL) Take by mouth. Active meloxicam (MOBIC) 15 mg Oral TabletIndication s:Acute pain of right shoulder Take 1 Tablet by mouth daily. 30 Tablet 2 04/29/2024 Active Active Problems Problem Noted Date Diagnosed Date Fibroids Dysmenorrhea Surgical History Surgery Date Site/Laterality Comments COLONOSCOPY 12/26/2016 - 01/24/2017 HYSTERECTOMY, SUPRACERVICAL 04/27/2008 - 04/26/2009 LSH, BSO , SUPRACERVICAL Medical History Medical History Date Comments Migraines Hypertension Abnormal Pap smear of cervix Family History Medical History Relation Name Comments Cancer Mother colon Heart Disease Mother Hypertension Mother Cancer Sister colon Relation Name Status Comments Father Mother Sister Social History Tobacco Use Types Packs/Day Years Used Date Smoking Tobacco: Former Cigarettes Q uit: 04/27/2007 Smokeless Tobacco: Never Tobacco Cessation:Counseling Given: Not Answered Alcohol Use Standard Drinks/Week Comments Yes 0 (1 standard drink = 0.6 oz pur e alcohol) once monthly PHQ-2 Answer Date Recorded PHQ-2 Total Score 0 08/13/2021 Sexually Active Control Partners Comments Yes Surgical Male Supracervical H ysterectomy Comments No Sex and Gender Information Value Date Recorded Sex Assigned at Not on file Legal Sex Female 7:09 PM EDT Gender Identity Not on file Sexual Orientation Not on file Obstetrics History Para Term AB IAB SAB Ectopic Multiple Livin g Live Births 4 3 3 1 1 3 3 Date Outcome GA Total Labor Labor/2nd/3rd Weight Sex Type Anes PTL Bessie A1 A5 Name Clin SAB 9w0d 36w0 d Vag-S pont Living 36w0 d Vag-S pont Living 36w0 d Vag-S pont Living Last Filed Vital Signs Vital Sign Reading Time Taken Comments Blood Pressure 114/70 09/13/2021 8:34 AM EDT Pulse 75 08/13/2021 2:02 PM EDT Temperature 36.1 C (97 F) 08/13/2021 2:02 PM EDT Respiratory Rate 20 08/13/2021 2:02 PM EDT Oxygen Saturation 98% 08/13/2021 2:02 PM EDT Inhaled Oxygen Concentration - - Weight 103.4 kg (228 lb) 04/29/2024 3:29 PM EST Height 170.2 cm (5' 7 ) 04/29/2024 3:29 PM EST Body Mass Index 35.71 04/29/2024 3:29 PM EST Plan of Treatment Health Maintenance Due Date Last Done Comments Annual Wellness Exam 1974 DTaP/TDaP/Td (1 - Tdap) 1990 Hepatitis B Vaccine (1 of 3 - 19+ 3-dose series) 1990 HPV/Pap Cotest 2001 Breast Cancer Screening 2011 Cologuard 01/05/2016 Colon Cancer Screening 01/05/2016 Colonoscopy 01/05/2016 FIT 01/05/2016 Sigmoidoscopy 01/05/2016 Virtual Colonography 01/05/2016 Pneumococcal Vaccine 50+ (1 of 1 - PCV) 2021 Zoster (1 of 2) 2021 Cervical Cancer Screening 08/13/2024 Pap Smear 08/13/2024 08/13/2021 COVID-19 Vaccine (1 - 2024-2 6 season) 2024 Influenza Vaccine (#1) 2024 Meningococcal B Vaccine Aged Out No l onger eligible based on patient's age to complete this topic Goals Goal Patient Goal Type Associated Problems Recent Progress Patient-Stated? Author Blood Pressure < 140/90 Blood Pressure 114/70(2021 8:34 AM EDT) No Alek, Natalie, RMA Maintain a healthy diet, exercise regularly and maintain an ideal body weight General No Alek, Natalie, RMA Stay Tobacco Free Lifestyle No Alek, Natalie, RMA Procedures Procedure Name Priority Date/Time Associated Diagnosis Comments CHAIN SAW MECHANIC CYTOLOGY REQUEST (PAP ONLY) Routine 08/13/2021 2:20 PM EDT Vaginal bleeding from Last 3 Months or Most Recently Relevant to Health Maintenance Results * CHAIN SAW MECHANIC CYTOLOGY REQUEST (PAP ONLY) (08/13/2021 2:20 PM EDT) CASE REPORT Gynecologic Cytology Report Case: [id number] Authorizing Provider: Leyda Hernandez APRN Collected: 08/13/2021 1420 Ordering Location: [facility] Received: 08/13/2021 1420 First Screen: Aurea Thorpe, CT Pathologist: Juanis Brewer MD Specimen: LIQUID-BASED PAP - CERVICAL, Cervix 08/16/2021 11:45 AM EDT [facility] PAP FINAL DIAGNOSIS Negative for intraepithelial lesion or malignancy 08/16/2021 11:45 AM EDT [facility] at 1145 EDT MICROSCOPIC DESCRIPTION Microscopic examination is performed and the findings corroborate the diagnosis. 08/16/2021 11:45 AM EDT [facility] PAP SMEAR ADEQUACY Satisfactory for evaluation 08/16/2021 11:45 AM EDT [facility] SPECIMEN LIMITATIONS Scant cells 08/16/2021 11:45 AM EDT [facility] ENDOCERVICAL T-ZONE Transformation zone present 08/16/2021 11:45 AM EDT [facility] EMBEDDED IMAGES 11:45 AM EDT [facility] PAP DISCLAIMER The Pap Smear is a screening test that aids in the detection of cervical cancer and cancer precursors. Both false positive and false negative results can occur. The test should be used at regular intervals, and positive results should be confirmed before definitive therapy. Processed using the ThinPrep Power Mule Operator Automated cytology screening device (Pl[employer] Jungle). 08/16/2021 11:45 AM EDT [facility] Thin Prep SPECIMEN FROM UTERINE CERVIX / Unknown 08/13/2021 2:20 PM EDT 08/13/2021 2:20 PM EDT Leyda Hernandez SUPERVISOR MACHINE SETTER CYTOLOGY [place] [address] from Last 3 Months or Most Recently Relevant to Health Maintenance Insurance ANTH PPO ANTH PPO Member Subscriber Plan / Payer (Ef fective 2019-Present) Name:Kalani Park Relation to Subscriber:Self Name:[place] Payer ID:[id number] (NAIC) Type:Not on file Address: [address] [place] [phone] PPO Member Subscriber Plan / Payer (Ef fective 2019-Present) Name:Kalani Park Relation to Subscriber:Self Name:Rusty Parklie Payer ID:[id number] (NAIC) Type:Not on file Address: [address] [place] [phone]
== END 2025-04-10 23:59 | disposition home or self-care (01) ==
LOC: LAB.DROPOF 04-12 08:07
PROVIDERS: PCP Family Medicine; Visit Provider Nurse Practitioner
DX: E53.8 Deficiency of other specified B group vitamins (principal); I10 Essential (primary) hypertension; E78.5 Hyperlipidemia, unspecified; E55.9 Vitamin D deficiency, unspecified; J30.9 Allergic rhinitis, unspecified; F41.8 Other specified anxiety disorders; Z80.0 Family history of malignant neoplasm of digestive organs; Z11.59 Encounter for screening for other viral diseases; Z86.39 Personal history of other endocrine, nutritional and metabolic disease
CPT/HCPCS: 80053; 80061; 82043; 82306; 82570; 82607; 83036; 84443; 85025; 86803; 87340; 87389

== ENCOUNTER 2025-04-11 10:00 | Outpatient (CLI) | payer BC, SELFPAY ==
--- OUTSIDE RECORDS SUMMARY | 2025-04-12 19:12 | XMS_ITS | Clinical Summary ---
Author Organization [facility] Address [address] [place] [phone] Phone Care Team Providers Care Textile Broker Name Role Phone Unavailable Primary Care Provider [...] Procedure Name Priority Date/Time Associated Diagnosis Comments NAPRAPATH CYTOLOGY REQUEST (PAP ONLY) Routine 08/13/2021 2:20 PM EDT Vaginal bleeding from Last 3 Months or Most Recently Relevant to Health Maintenance Results * NAPRAPATH CYTOLOGY REQUEST (PAP ONLY) (08/13/2021 2:20 PM EDT) CASE REPORT Gynecologic Cytology Report Case: [id number] Authorizing Provider: Leyda Hernandez APRN Collected: 08/13/2021 1420 Ordering Location: [facility] Received: 08/13/2021 1420 First Screen: Aurea Thorpe, CT Pathologist: Juanis Brewer MD Specimen: LIQUID-BASED PAP - CERVICAL, Cervix 08/16/2021 11:45 AM EDT [facility] PAP FINAL DIAGNOSIS Negative for intraepithelial lesion or malignancy 08/16/2021 11:45 AM EDT [facility] at 1145 EDT MICROSCOPIC DESCRIPTION Microscopic examination is performed and the findings corroborate the diagnosis. 08/16/2021 11:45 AM EDT [facility] PAP SMEAR ADEQUACY Satisfactory for evaluation 08/16/2021 11:45 AM EDT [facility] SPECIMEN LIMITATIONS Scant cells 08/16/2021 11:45 AM EDT [facility] ENDOCERVICAL T-ZONE Transformation zone present 08/16/2021 11:45 AM EDT [facility] EMBEDDED IMAGES 11:45 AM EDT [facility] PAP DISCLAIMER The Pap Smear is a screening test that aids in the detection of cervical cancer and cancer precursors. Both false positive and false negative results can occur. The test should be used at regular intervals, and positive results should be confirmed before definitive therapy. Processed using the ThinPrep Horser Up Automated cytology screening device (Venda). 08/16/2021 11:45 AM EDT [facility] Thin Prep SPECIMEN FROM UTERINE CERVIX / Unknown 08/13/2021 2:20 PM EDT 08/13/2021 2:20 PM EDT Leyda Hernandez EMPLOYMENT LAW ATTORNEY CYTOLOGY ORDERABLES [place] [address] from Last 3 Months or Most Recently Relevant to Health Maintenance Insurance ANTH PPO ANTH PPO Member Subscriber Plan / Payer (Ef fective 2019-Present) Name:Kalani Park Relation to Subscriber:Self Name:[place] Payer ID:[id number] (NAIC) Type:Not on file Address: [address] [place] [phone] PPO Member Subscriber Plan / Payer (Ef fective 2019-Present) Name:Kalani Park Relation to Subscriber:Self Name:Rusty Parklie Payer ID:[id number] (NAIC) Type:Not on file Address: [address] [place] [phone]
== END 2025-04-11 23:59 | disposition home or self-care (01) ==
LOC: LAB.DROPOF 04-12 19:11
PROVIDERS: PCP Family Medicine; Visit Provider Nurse Practitioner
DX: E78.5 Hyperlipidemia, unspecified (principal); I10 Essential (primary) hypertension; E53.8 Deficiency of other specified B group vitamins; E55.9 Vitamin D deficiency, unspecified; J30.9 Allergic rhinitis, unspecified; F41.8 Other specified anxiety disorders; Z80.0 Family history of malignant neoplasm of digestive organs; Z11.59 Encounter for screening for other viral diseases; Z86.39 Personal history of other endocrine, nutritional and metabolic disease
CPT/HCPCS: 82043; 82570